=== PATIENT | female | born 1985 | race Caucasian/White ===

== ENCOUNTER 2023-11-20 08:12 | Outpatient (AMB) | payer OTHER, SELFPAY ==
[2023-11-20 08:33] VITALS: BP 110/80; PULSE 81; TEMP 36.3; O2SAT 98; BMI 24.4
--- NOTE | 2023-11-20 08:33 | MHC.OFFWIV ---
Intake Vital Signs 11/20/23 08:33 Height 5 ft 3 in Weight 138 lb BMI 24.4 BP 110/80 Blood Pressure Location Lt brachial Position Sitting Pulse 81 Pulse Source Pulse Oximeter Temp 97.4 F Temp Source Temporal Artery Scan Pulse Oximetry (%) 98 Oxygen Delivery Method Room Air Intake Visit Reasons: EST/ sore throat and head thelma(lobby masked) Intake Note: pt is here today for sore throat and head congested started sunday Patient Tobacco Use Status: Never used Tobacco Allergies amoxicillin Allergy (Unknown, Verified 11/20/23 08:45) rash Medication List - Last Reconciled 11/20/23 by Luis A Pearson MD No Known Home Meds Do you need a note to return to daycare/school/sports/work: Yes HPI EST/ sore throat and head thelma(lobby masked) HPI Details Patient presents for a sick visit. Reporting symptoms of sinus congestion, sore throat and difficulty swallowing. Low-grade fever. No family member is sick. No recent travel. Patient reports symptoms of malaise and fatigue. PFSH Social History Patient Tobacco Use Status: Never used Tobacco Physical Exam Vital Signs: Last Vital Signs Temp 97.4 F 11/20/23 08:33 Pulse 81 11/20/23 08:33 BP 110/80 11/20/23 08:33 Pulse Ox 98 11/20/23 08:33 Oxygen Delivery Method Room Air 11/20/23 08:33 BMI result Body Mass Index 24.4 Const General: cooperative and healthy appearing Nutritional Appearance: well nourished Orientation/consciousness: patient oriented x3 Limitations: no limitations HEENT Head: Yes normal to inspection Eyes General: appearance normal, both eyes and all related structures Neck Neck: Yes normal visual inspection Chest Chest palpation & inspection: normal palpation of entire chest wall Resp Effort & Inspection: normal respiratory effort Neuro General: patient oriented x3 Assessment & Plan Assessment & Plan (1) Upper respiratory tract infection: Code(s): J06.9 - Acute upper respiratory infection, unspecified Plan: Antibiotics ordered. Increase fluid intake. Tylenol for aches and pains. If symptoms worsen, follow-up here for a recheck. Coding Level of Care Code Est Pt Level 3 (16581) Diagnoses Upper respiratory tract infection J06.9
== END 2023-11-20 08:49 | disposition home or self-care (01) ==
PROVIDERS: PCP Family Medicine; Visit Provider Internal Medicine
DX: J06.9 Acute upper respiratory infection, unspecified (principal)
CPT/HCPCS: 99213